=== PATIENT | male | born 1970 | race African-American/Black ===

== ENCOUNTER 2025-06-26 09:32 | Emergency (ER) | payer OTHER ==
[2025-06-26] MEDS ORDERED: Boostrix 0.5 ML (Tdap) VIAL (>/=7 yrs of age) ONE (09:48)
[2025-06-26] MEDS ORDERED: Lidocaine 1% w/Epinephrine 1:100K 20 ML VIAL ONE (09:48)
== END 2025-06-26 10:35 | disposition home or self-care (01) ==
LOC: MADERS 09:32
DX: S81.811A Laceration without foreign body, right lower leg, initial encounter (principal); F17.210 Nicotine dependence, cigarettes, uncomplicated; Z23 Encounter for immunization; W26.8XXA Contact with other sharp object(s), not elsewhere classified, initial encounter
CPT/HCPCS: 12032; 90471; 90715

== ENCOUNTER 2025-07-16 20:26 | Emergency (ER) | payer OTHER ==
[2025-07-16] MEDS ORDERED: Aspirin Chewable 81 MG TAB ONE (20:38)
[2025-07-16] MEDS ORDERED: Nitroglycerin 0.4 MG TAB 1 EACH ONE (20:38)
[2025-07-16] MEDS ORDERED: Lidocaine Viscous Sol 2% 15 ml UD Cup ONE (20:57)
[2025-07-16] MEDS ORDERED: Mag-Al 1200 mg/1200 mg/30 ML UDCUP ONE (20:57)
[2025-07-16 20:59] LABS: #Basophils 0.2 thou/uL (0.0-0.2); #Eosinophils 0.1 thou/uL (0.0-0.7); #Lymphocytes 2.9 thou/uL (1.20-3.40); #Monocytes 0.5 thou/uL (0.11-0.59); #Neutrophils 3.9 thou/uL (1.40-6.50); %Basophils 2.0 % (0.0-1.0); %Eosinophils 1.8 % (0.0-10.0); %Lymphocytes 38.2 % (21.0-51.0); %Monocytes 6.3 % (0.0-10.0); %Neutrophils 51.8 % (42.0-75.0); Hematocrit 35.5 % (42.0-52.0); Hemoglobin 11.2 g/dL (14.0-18.0); Mean Corpuscular Hemoglobin 26.7 pg (27.0-31.0); Mean Corpuscular Volume 84.6 fl (78.0-98.0); Platelet Count 300 10x3/uL (130-400); Red Blood Cell (RBC) Count 4.19 mill/uL (4.70-6.10); White Blood Cell (WBC) Count 7.6 10x3/uL (4.8-10.8)
[2025-07-16 21:03] LABS: INR-International Normal Ratio 1.1; Prothrombin Time 14.6 sec (12.0-14.7)
[2025-07-16] MEDS ORDERED: cefTRIAXone (ROCEPHIN) 1 GM VIAL ONE (21:11)
[2025-07-16 21:19] LABS: ALT (SGPT) 10 U/L (Less than 45); AST (SGOT) 16 U/L (11-34); Albumin 3.9 g/dL (3.1-4.5); Alkaline Phosphatase 51 U/L (40-110); Anion Gap 16 mmol/L (10-20); BUN (Urea Nitrogen) 13 mg/dL (8.4-25.7); Bilirubin, Total 0.2 mg/dL (0.3-1.2); Calc. Creatinine Clearance 0 mL/min (70-130); Calcium 8.5 mg/dL (7.8-10.44); Carbon Dioxide 24 mmol/L (22-29); Chloride 106 mmol/L (98-107); Globulin 2.8 g/dL (2.4-3.5); Glucose 118 mg/dL (70-105); Magnesium 1.8 mg/dL (1.6-2.6); Potassium 3.6 mmol/L (3.5-5.1); Sodium 142 mmol/L (136-145)
[2025-07-16 21:22] LABS: Troponin I 0.016 ng/mL (< 0.028)
[2025-07-16] MEDS ORDERED: Famotidine/PF 20 mg/2ml Vial ONE (22:08)
[2025-07-16 23:06] LABS: Troponin I 0.027 ng/mL (< 0.028)
== END 2025-07-16 23:28 | disposition home or self-care (01) ==
LOC: MADERS 20:26
DX: R07.9 Chest pain, unspecified (principal); L03.115 Cellulitis of right lower limb; F17.210 Nicotine dependence, cigarettes, uncomplicated
CPT/HCPCS: 36415; 71045; 80053; 83605; 83735; 83880; 84484; 85025; 85610; 87040; 93005; 96365; 96375; J0696; J1308; J2270